=== PATIENT | female | born 1995 | race Caucasian/White ===

== ENCOUNTER 2016-10-30 15:50 | Emergency (ER) | payer OTHER ==
--- NOTE | ~2016-10-30 | CT4 ---
[facility] A Service of [facility] RADIOLOGY TEXT RESULTS PATIENT: TATIANA ANDUJAR LOCATION: SED : 95 UNIT #: [id number] AGE: [address]: Saba Mendes SEX: F ORDER DR: [id number] [address] [address] [id number] MR#: [id number] #: [id number] NAME: TATIANA ANDUJAR : 1995 SEX: F STUDY DATE/TIME: 10/30/2016 17:35 UNIT: SED ROOM: STUDY DESCRIPTION: CT Abd and Pelv Wo Cont Attending Physician: Saba Mendes Pa-C Ordering Physician: Saba Mendes Pa-C Primary Care Physician: Pranay Acosta M.D. MEDICAL IMAGING REPORT This report is preliminary unless electronic signature is present. EXAM Abdomen and pelvis CT without contrast. HISTORY Fever with painful urination toward the right side for the past 2 days accompanied by nausea, vomiting and lower abdominal pain. TECHNIQUE Axial images were obtained without contrast. This CT exam was performed with one or more of the following radiation dose reduction techniques: automatic exposure control, adjustment of mA and/or kV according to patient size, and iterative reconstruction. FINDINGS The liver, spleen and pancreas are normal in size. No adrenal masses are seen. The left kidney is unremarkable. The right collecting system is mildly prominent and the right ureter is mildly dilated, but I do not see any obstructing stones. This could reflect recent stone passage. No ureteral stones or bladder stones are seen. There is no evidence of retroperitoneal adenopathy or ascites and no distended bowel loops are noted. The appendix is normal. In the pelvis, there is no evidence of adenopathy, mass or fluid collection. IMPRESSION Normal appendix. No evidence of kidney stones. The right collecting system is mildly prominent and this could potentially reflect recent stone passage. Dictated by... Naveed Keller M.D. [facility] A Service of [facility] RADIOLOGY TEXT RESULTS PATIENT: TATIANA ANDUJAR LOCATION: SED : 95 UNIT #: [id number] AGE: [address]: Saba Mendes SEX: F ORDER DR: THIS IS AN ELECTRONICALLY VERIFIED REPORT Naveed Keller M.D. at 11/01/2016 7:07 AM RICO/sandra TD: 10/31/2016 08:56 JOB #: [id number] MEDICAL IMAGING REPORT Page 1 of 1
[2016-10-30] MEDS ORDERED: NO MEDICATIONS (15:52)
[2016-10-30 16:47] LABS: BASOPHIL% 0.2 % (0-2.5); HEMATOCRIT 36.3 % (35.0-45.0); HEMOGLOBIN 11.8 gm/dL (12.0-16.0); LYMPHOCYTE% 7.3 % (17.0-45.0); MEAN CELL VOLUME 80.7 FL (83-96); MEAN CORPUSCULAR HEMOGLOBIN 26.2 PG (28-34); MEAN CORPUSCULAR HGB CONC 32.5 g/dL (30-36); MEAN PLATELET VOLUME 9.6 FL (6.5-11.5); MONOCYTE% 7.4 % (3.0-12.0); NEUTROPHIL# 11.4 X10e3 (1.5-7.1); NEUTROPHIL% 85.1 % (40-75); PLATELET COUNT 233 X10e3 (140-420); RED CELL DISTRIBUTION WIDTH 12.6 % (11.0-15.5); WHITE BLOOD COUNT 13.4 X10e3 (4.0-10.5)
[2016-10-30 16:48] LABS: URINE APPEARANCE SL CLOUDY; URINE BILIRUBIN NEG (NEG); URINE BLOOD 2+ (NEG); URINE COLOR YELLOW; URINE GLUCOSE NEG (NORM); URINE KETONE NEG (NEG); URINE LEUKOCYTE ESTERASE 3+ (NEG); URINE NITRATE POS (NEG); URINE PROTEIN 1+ (NEG); URINE SOURCE CLEAN CATCH; URINE UROBILINOGEN 0.2 MG/DL (NORM)
[2016-10-30 16:50] LABS: MICRO INDICATED? YES
[2016-10-30 16:50] LABS: DIFF IND NO
[2016-10-30 16:55] LABS: CULTURE INDICATED? YES; URINE BACTERIA 1+ (NEG); URINE SQUAMOUS EPITHELIAL CELL FEW /[HPF]; URINE WBC 25-50 /[HPF] (0-5)
[2016-10-30 17:06] LABS: ALBUMIN SERUM 3.9 g/dL (3.5-5.0); BILIRUBIN,TOTAL 2.1 mg/dL (0.2-2.0); BUN/CREATININE RATIO 12.22; CALCIUM SERUM 8.4 mg/dL (8.4-10.2); CREATININE SERUM 0.9 mg/dL (0.6-1.4); GLOM FILT RATE Estimated 91.5 mL/min (>60); POTASSIUM 3.4 mmol/L (3.5-5.1); PROTEIN TOTAL SERUM 7.3 g/dL (6.0-8.3)
== END 2016-10-30 19:31 | disposition home or self-care (01) ==
LOC: SED 15:50
PROVIDERS: Physician Assistant
DX: N10 Acute pyelonephritis (principal)
CPT/HCPCS: 36415; 74176; 80053; 81003; 83605; 84703; 85025; 87086; 87088; 87186; 96365; 96375; 99284; J1956; J2270; J2405